=== PATIENT | female | born 1980 | race Caucasian/White ===

== ENCOUNTER 2019-08-08 20:02 | Emergency (ER) | payer BC ==
[2019-08-08 20:14] VITALS: BP 141/74; PULSE 82; RESP 18; TEMP 98
[2019-08-08] MEDS ORDERED: KETOROLAC 30 MG/ML 1 ML VIAL IM STA (20:51)
[2019-08-08] MEDS ORDERED: LIDOCAINE 5% PATCH TOPICAL STA (20:51)
[2019-08-08] MEDS ORDERED: CYCLOBENZAPRINE 10 MG TAB PO STA (20:52)
[2019-08-08] MEDS ORDERED: CYCLOBENZAPRINE 10MG STARTER 3 TAB BTL PO STA (21:54)
[2019-08-08] MEDS ORDERED: DEXAMETHASONE SOD PHOSPHATE 10 MG/ML 1 ML VIAL IM STA (21:55)
--- NOTE | 2019-08-08 21:56 | ED ---
Back Pain HPI - General Chief Complaint: Back Pain/Injury Stated Complaint: Back pain Time Seen by Provider: 08/08/19 20:16 Source: patient Limitations: no limitations - History of Present Illness Initial Comments: Patient is a 39-year-old female with history of chronic back pain presenting to the emergency department with a chief complaint of back pain. Patient reports she has on and off low back pain for prolonged periods time. Patient reports her last few days she developed increased low back pain that tends to be radiating along the posterior aspect of the right lower extremity to the heel. Patient reports sitting in a somewhat elevated position alleviate some of the pain. Patient reports bending forward and left rotation exacerbates the pain. Patient reports taking [id number] ALLERGIES with some improvement. Patient reports going to physical therapy prior for similar symptoms and it did help improve the pain. Patient denies saddle anesthesia, urinary bowel incontinence. Denies trauma to the region. Denies any abdominal pain chest pain. - Related Data Previous Rx's Medication Instructions Recorded Cyclobenzaprine [Flexeril] 5 mg PO TID PRN #15 tablet 08/08/19 Allergies Allergy/AdvReac Type Severity Reaction Status Date / Time No Known Allergies Allergy Verified 08/08/19 20:13 Review of Systems ROS Statement: Those systems with pertinent positive or pertinent negative responses have been documented in the HPI. ROS Other: All systems not noted in ROS Statement are negative. Past Medical History Past Medical History: No Reported History History of Any Multi-Drug Resistant Organisms: None Reported Past Surgical History: Section Past Psychological History: No Psychological Hx Reported Smoking Status: Never smoker Past Alcohol Use History: None Reported Past Drug Use History: None Reported General Exam Limitations: no limitations General appearance: alert, in no apparent distress Head exam: Present: atraumatic, normocephalic, normal inspection Eye exam: Present: normal appearance, PERRL, EOMI Pupils: Present: normal accommodation ENT exam: Present: normal exam, normal oropharynx Neck exam: Present: normal inspection, full ROM Respiratory exam: Present: normal lung sounds bilaterally Cardiovascular Exam: Present: regular rate, normal rhythm, normal heart sounds Extremities exam: Present: normal inspection, full ROM, normal capillary refill, other (+2 ulnar and radial pulses bilaterally.) Back exam: Present: normal inspection, full ROM, tenderness, paraspinal tenderness (Paraspinal spinal tenderness the right lumbosacral region radiating along the posterior aspect of the right lower extremity. Positive leg raise test.). Absent: vertebral tenderness Neurological exam: Present: alert, oriented X3 Psychiatric exam: Present: normal affect, normal mood Skin exam: Present: warm, dry, intact, normal color Course Vital Signs 08/08/19 20:10 Temperature 98.0 F Pulse Rate 82 Respiratory 18 Rate Blood Pressure 141/74 O2 Sat by Pulse 100 Oximetry Medical Decision Making - Medical Decision Making Patient is a 39-year-old female with history of chronic back pain presenting to emergency Department with a chief complaint of back pain. On exam patient does have right paraspinal tenderness radiating along the posterior aspect of the right lower extremity. Pain seems to be exacerbated with ambulation and back extension, full flexion left and right rotation. She does report laying in a semi-elevated position pulse alleviate the pain. Patient does have positive leg raise test. I suspect the patient has a lumbar radiculopathy. Patient given Toradol, Lidoderm patch and a Flexeril. On reevaluation patient reports improvement in symptoms although this still seemed to persist. Patient was given a single dose of Decadron. Patient reports symptoms have almost completely resolved at this point. Patient will be discharged with a Flexeril prescription. Patient advised not to drive or operate machinery when taking the medication. No cauda equina. Patient states this pain is somewhat typical of her usual chronic back pain. Patient was to follow-up with orthopedic specialis t. Strict return parameters were thoroughly discussed the patient was understanding and agreeable. Case discussed with physician. Disposition Clinical Impression: Mechanical back pain, Lumbar radiculopathy, Sciatica Disposition: HOME SELF-CARE Condition: Stable Instructions (If sedation given, give patient instructions): Acute Low Back Pain (ED) Additional Instructions: Please follow up with primary care and obtained a referral for physical therapy. Take prescribed medication as directed. Return to emergency department if symptoms worsen. Alternate between Tylenol and Motrin for pain control. Prescriptions: Cyclobenzaprine [Flexeril] 5 mg PO TID PRN #15 tablet PRN Reason: Muscle Spasm Is patient prescribed a controlled substance at d/c from ED?: No Referrals: Jeannette Chaudhary MD [Primary Care Provider] - 1-2 days Time of Disposition: 21:56
[2019-08-08] MEDS ORDERED: DEXAMETHASONE 4 MG TAB PO STA (22:03)
== END 2019-08-08 22:12 | disposition home or self-care (01) ==
LOC: EC 20:02
DX: M54.16 Radiculopathy, lumbar region (principal); Z53.8 Procedure and treatment not carried out for other reasons
CPT/HCPCS: 99283; 96372; J8540; J1885

== ENCOUNTER → 2021-07-31 | Outpatient (CLI) | payer OTHER ==
--- NOTE | 2021-07-31 23:33 | CT ---
EXAMINATION TYPE: CT abdomen pelvis w con DATE OF EXAM: 07/31/2021 HISTORY: LLQ pain, recent rod. CT DLP: 1536mGycm Automated Exposure Control for Dose Reduction was Utilized. CONTRAST: CT scan of the abdomen and pelvis is performed with IV Contrast, patient injected with 100 mL of Isov ue 300. COMPARISON: 07/07/2021 FINDINGS: LUNG BASES: No significant abnormality is appreciated. INCLUDED CARDIAC STRUCTURES: Unremarkable LIVER: There is a focal subcentimeter hypoattenuating lesion in the peripheral aspect of the right he patic lobe, too small to visualize. GALLBLADDER : Gallbladder is not visualized. BILIARY TREE: No abnormal biliary tree dilation. PANCREAS: No significant abnormality is seen. SPLEEN: No significant abnormality is seen. ADRENALS: No significant abnormality is seen. KIDNEYS AND URETERS: No significant abnormality is seen. URINARY BLADDER: No significant abnormality is appreciated. ESOPHAGUS: No significant abnormality is seen. STOMACH: No significant abnormality is seen. SMALL BOWEL: No significant abnormality is seen. LARGE BOWEL: No significant abnormality is seen. APPENDIX: No significant abnormality is seen. HERNIAS: No significant abnormality is seen. UTERUS/ADNEXA: There is a low attenuating lesion with thin peripheral incomplete rim of enhancement s een on series 3 image 65 and series 5 image 35. This measures 1.8 x 1.7 cm. This was seen on the most recent prior study and had a similar measurement but was not seen on the study prior to that dated o f 07/09/2011. Uterus is not enlarged although there are focal areas of low attenuation cysts series 3 image 69 and image 73. Right adnexa is unremarkable. PERITONEUM/MESENTRY: No pneumoperitoneum or ascites. LYMPH NODES: No enlarged retroperitoneal or pelvic lymph nodes are appreciated. MAJOR VASCULAR STRUCTURES: Nonaneurysmal aorta. Unremarkable inferior vena cava. OSSEOUS STRUCTURES: There is moderate narrowing at L3-4 L4-5 and L5-S1 with endplate degenerative zia nges. These degenerative changes have progressed compared to prior. SOFT TISSUE: There is focal left abdominal wall soft tissue swelling. No fluid collection. IMPRESSION: 1. There is a 1.8 cm low attenuating lesion in the left lower abdomen with thin peripheral enhancing rim, this structure is felt to be related to the adnexa and specifically an ovarian follicle/follicul ar cyst since this was present on the most recent prior but not on the study performed in 2010. I rec ommend correlation with pelvic ultrasound. 2. The gallbladder is not visualized and there is left abdomen focal soft tissue swelling, correlatio n with recent surgical history recommended. 3.
== END | disposition home or self-care (01) ==
LOC: RADCTMAIN 15:03
PROVIDERS: ATTEND Family Medicine
DX: N83.00 Follicular cyst of ovary, unspecified side (principal)
CPT/HCPCS: 74177; Q9967

== ENCOUNTER → 2021-08-03 | Outpatient (CLI) | payer OTHER ==
--- NOTE | 2021-08-03 15:58 | US ---
EXAMINATION TYPE: US pelvic complete DATE OF EXAM: 08/03/2021 COMPARISON: CLINICAL HISTORY: N83.202 UNSPECIFIED OVARIAN CYST LEFT. CT showed left follicular cyst. Recent GB s urgery. Hx endometrial ablation. Left pelvic pain. TECHNIQUE: Transabdominal (TA). Date of LMP: Unknown EXAM MEASUREMENTS: Uterus: 8.1 x 4.0 x 3.8 cm Endometrial Stripe: 0.2 cm Right Ovary: 3.5 x 1.7 x 1.5 cm Left Ovary: 3.8 x 1.7 x 1.8 cm 1. Uterus: Anteverted Heterogenous, no focal lesions seen 2. Endometrium: appears wnl for ablation status 3. Right Ovary: wnl 4. Left Ovary: follicle seen 5. Bilateral Adnexa: wnl 6. Posterior cul-de-sac: no free fluid Urinary bladder is sonolucent. Posterior wall is unremarkable. IMPRESSION: 1. Normal pelvic ultrasound
== END | disposition home or self-care (01) ==
LOC: RADUSWWP 10:23
PROVIDERS: ATTEND Family Medicine
DX: N83.202 Unspecified ovarian cyst, left side (principal)
CPT/HCPCS: 76856